=== PATIENT | female | born 1955 | race Hispanic/Latino ===

== ENCOUNTER 2021-02-05 12:44 | Emergency (ER) | payer MEDICARE ==
--- NOTE | 2021-02-05 12:48 | Emergency Department Report ---
Blank Doc - Documentation Documentation: 65-year-old female with past medical history of blood clots present with chest pain, tightness and shortness of breath. 1- This is a initial triage assessment/medical screening only. Full assessment and work-up will be completed once the patient is in proper hospital gown, ED bed and in a private room setting. This initial assessment/diagnostic orders/clinical plan/ treatment(s) is/are subject to change based on pt's health status, clinical progression and re-assessment by fellow clinical providers in the ED. Further treatment and workup at subsequent clinical providers discretion. Patient/guardians urged not to elope from ED as their condition may be serious if not clinically assessed and managed. 2-patient sent to main ED for further relation treatment. 3-cardiac work-up
--- NOTE | 2021-02-05 13:18 | XRay Report ---
CHEST 2 VIEWS INDICATION / CLINICAL INFORMATION: Chest Pain. FINDINGS: SUPPORT DEVICES: None. HEART / MEDIASTINUM: No significant abnormality. LUNGS / PLEURA: No significant pulmonary or pleural abnormality. No pneumothorax. ADDITIONAL FINDINGS: No significant additional findings. IMPRESSION: 1. No acute findings. Signer Name: Eric Felder MD Signed: 02/05/2021 1:13 PM Workstation Name: [id number]
[2021-02-05] MEDS ORDERED: ONDANSETRON 4 MG/2 ML INJ IV ONE (13:48)
[2021-02-05] MEDS ORDERED: fentaNYL 100 MCG/2 ML INJ IV ONE (13:48)
--- NOTE | 2021-02-05 13:52 | Emergency Department Report ---
HPI - General Chief Complaint: Chest Pain Time Seen by Provider: 02/05/21 12:46 - HPI HPI: Room 5 The patient is a 65-year-old female present with a chief complaint of chest pain. The patient states this morning she developed left-sided chest pain desc ribed as a "hurt". Patient states the pain has been constant patient denies shortness of breath, nausea/vomiting or diaphoresis. Patient complains of occasional pleurisy but denies history of fever. The patient states last week she went to the hospital for chest pain and was diagnosed with bilateral pneumonia. Patient states that she was given a prescription for antibiotics (cannot recall the name) and after 3 days her symptoms resolved. Patient states she has been pain-free for approximately 4 days until this morning when the pain came back "worse" than before. Patient currently gives her chest pain a score of 6/10. Patient states her last stress test occurred over 5 years ago but sh e's never had a cardiac catheterization. 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, - Surgical History Past Surgical History?: Yes Additional Surgical History: Right femur, right knee fracture repair - Family History Family history: no significant - Social History Smoking Status: Former Smoker (None x2 months) Substance Use Type: None (Denies illicit drug use) ED Review of Systems ROS: Stated complaint: CHEST PAIN Other details as noted in HPI Constitutional: denies: diaphoresis, fever Eyes: denies: eye pain ENT: denies: throat pain Cardiovascular: chest pain Endocrine: no symptoms reported Gastrointestinal: denies: nausea, vomiting Genitourinary: denies: dysuria Musculoskeletal: denies: back pain Neurological: denies: headache Physical Exam - Physical Exam Vital Signs: Vital Signs 02/05/21 12:59 Temperature 98.1 F Pulse Rate 75 Respiratory 20 Rate Blood Pressure 107/65 [Right] O2 Sat by Pulse 97 Oximetry Physical Exam: GENERAL: The patient is well-developed well-nourished female lying on stretcher not appearing to be in acute distress. [] HEENT: Normocephalic. Atraumatic. Extraocular motions are intact. Patient has moist mucous membranes. NECK: Supple. Trachea midline CHEST/LUNGS: Clear to auscultation. There is no respiratory distress noted. HEART/CARDIOVASCULAR: Regular. There is no tachycardia. There is no gallop rub or murmur. ABDOMEN: Abdomen is soft, nontender. Patient has normal bowel sounds. There is no abdominal distention. SKIN: There is no rash. There is no edema. There is no diaphoresis. NEURO: The patient is awake, alert, and oriented. The patient is cooperative. The patient has no focal neurologic deficits. The patient has normal speech MUSCULOSKELETAL: There is right lower extremity postop boot in place. There is no evidence of acute injury. ED Course Vital Signs 02/05/21 12:59 Temperature 98.1 F Pulse Rate 75 Respiratory 20 Rate Blood Pressure 107/65 [Right] O2 Sat by Pulse 97 Oximetry - Reevaluation(s) Reevaluation #1: 02/05/21 18:01 VQ scan labs discussed with patient. Expressed my recommendation that she be admitted to the hospital for further observation for her chest pain. Patient verbalized understanding but states that she does not wish to be admitted to the hospital. Patient verbalized understanding of increased morbidity and/or mortality should she leave the hospital AGAINST MEDICAL ADVICE. Patient advised to return to the hospital should she change her mind. ED Medical Decision Making - Lab Data Result diagrams: 02/05/21 13:07 02/05/21 13:07 Laboratory Tests 02/05/21 02/05/21 02/05/21 13:07 13:07 13:07 WBC 8.0 RBC 4.90 Hgb 14.7 H Hct 43.8 H MCV 89 MCH 30 MCHC 34 RDW 16.7 H Plt Count 300 Lymph % (Auto) 31.9 Dickenson % (Auto) 8.6 H Eos % (Auto) 4.6 H Baso % (Auto) 0.6 Lymph # (Auto) 2.5 Dickenson # (Auto) 0.7 Eos # (Auto) 0.4 Baso # (Auto) 0.0 Seg Neutrophils % 54.3 Seg Neutrophils # 4.3 PT 23.6 H INR 2.06 H APTT 59.5 H Sodium 141 Potassium 3.9 Chloride 103.8 Carbon Dioxide 31 H Anion Gap 10 BUN 17 Creatinine 0.6 Estimated GFR > 60 BUN/Creatinine Ratio 28 Glucose 85 Calcium 9.5 Magnesium 2.20 Total Bilirubin 0.50 AST 13 ALT 12 Alkaline Phosphatase 145 H Troponin T < 0.010 NT-Pro-B Natriuret Pep 36.58 Total Protein 6.4 Albumin 4.0 Albumin/Globulin Ratio 1.7 Urine Color Urine Turbidity Urine pH Ur Specific [place] Urine Protein Urine Glucose (UA) Urine Ketones Urine Blood Urine Nitrite Urine Bilirubin Urine Urobilinogen Ur Leukocyte Esterase Urine WBC (Auto) Urine RBC (Auto) U Epithel Cells (Auto) Urine Mucus 02/05/21 Unknown WBC RBC Hgb Hct MCV MCH MCHC RDW Plt Count Lymph % (Auto) Dickenson % (Auto) Eos % (Auto) Baso % (Auto) Lymph # (Auto) Dickenson # (Auto) Eos # (Auto) Baso # (Auto) Seg Neutrophils % Seg Neutrophils # PT INR APTT Sodium Potassium Chloride Carbon Dioxide Anion Gap BUN Creatinine Estimated GFR BUN/Creatinine Ratio Glucose Calcium Magnesium Total Bilirubin AST ALT Alkaline Phosphatase Troponin T NT-Pro-B Natriuret Pep Total Protein Albumin Albumin/Globulin Ratio Urine Color Yellow Urine Turbidity Clear Urine pH 7.0 Ur Specific [place] 1.013 Urine Protein <15 mg/dl Urine Glucose (UA) Neg Urine Ketones Neg Urine Blood Sm Urine Nitrite Neg Urine Bilirubin Neg Urine Urobilinogen < 2.0 Ur Leukocyte Esterase Neg Urine WBC (Auto) < 1.0 Urine RBC (Auto) 1.0 U Epithel Cells (Auto) < 1.0 Urine Mucus Few - EKG Data -: EKG Interpreted by Me EKG shows normal: sinus rhythm Rate: normal - EKG Data When compared to previous EKG there are: previous EKG unavailable Interpretation: other (No ischemic changes seen) - Radiology Data Radiology results: report reviewed (Chest x-ray, VQ scan), image reviewed (Chest x-ray, VQ scan) interpreted by me: Chest x-ray-no definite focal infiltrates, no pneumothorax. No foreign body seen [facility] [address] [place] [address] Nu clear Medicine Report Signed Patient: NOHELIA RONDON MR#: [id number] : 1955 Acct:[id number] Age/Sex: 65 / F ADM Date: 02/05/21 Loc: ED Attending Dr: Ordering Physician: PATRICIA COLEMAN MD Date of Service: 02/05/21 Procedure(s): NM perfusion only lung scan Accession Number(s): [id number] cc: PATRICIA COLEMAN MD Nuclear medicine perfusion scan INDICATION: Chest pain TECHNIQUE: A total of 5.5 mCi of technetium 99 MAA injected IV per protocol COMPARISON: Chest radiograph performed 02/05/2021 FINDINGS: No perfusion abnormality identified. IMPRESSION: No perfusion abnormality identified within either lung. Signer Name: Eric Felder MD Signed: 02/05/2021 5:05 PM Workstation Name: [id number] Transcribed By: NITIN Dictated By: Eric Felder MD Electronically Authenticated By: Eric Felder MD Signed Date/Time: 02/05/211704 DD/ 03 TD/TT: Print [facility] [address] [place] [address] XRay Report Signed Patient: NOHELIA RONDON MR#: [id number] : 1955 Acct:[id number] Age/Sex: 65 / F ADM Date: 02/05/21 Loc: ED Attending Dr: Ordering Physician: MAT CAZARES NP Date of Service: 02/05/21 Procedure(s): XR chest routine 2V Accession Number(s): [id number] cc: MAT CAZARES NP Fluoro Time In Minutes: CHEST 2 VIEWS INDICATION / CLINICAL INFORMATION: Chest Pain. FINDINGS: SUPPORT DEVICES: None. HEART / MEDIASTINUM: No significant abnormality. LUNGS / PLEURA: No significant pulmonary or pleural abnormality. No pneumothorax. ADDITIONAL FINDINGS: No significant additional findings. IMPRESSION: 1. No acute findings. Signer Name: Eric Felder MD Signed: 02/05/2021 1:13 PM Workstation Name: [id number] Transcribed By: NITIN Dictated By: Eric Felder MD Electronically Authenticated By: Eric Felder MD Signed Date/Time: 02/05/21 131 DD/ 1313 TD/TT: Print Cancel - Medical Decision Making Patient states she is allergic to IV contrast dye so subsequently VQ scan was ordered - Differential Diagnosis Pneumonia, PE, ACS, pericarditis, GERD, anxiety Critical care attestation.: If time is entered above; I have spent that time in minutes in the direct care of this critically ill patient, excluding procedure time. ED Disposition Clinical Impression: Chest pain Disposition: DC-07 LEFT AGAINST MED ADVICE Is pt being admited?: No Does the pt Need Aspirin: Yes Condition: Undetermined Instructions: Nonspecific Chest Pain, Adult Time of Disposition: 18:01 (Patient leaving AMA) Heart Score - HEART Score History: Moderately suspicious EKG: Normal Age: 45-65 Risk factors: 1-2 risk factors Troponin: < normal limit HEART Score: 3 - EKG Read Time Time EKG Completed: 00:00 (0) EKG Read Time: 00:00
[2021-02-05 13:54] LABS: Basophils % (Auto) 0.6 % (0.0-1.8); Eosinophils # (Auto) 0.4 K/mm3 (0.0-0.4); Eosinophils % (Auto) 4.6 % (0.0-4.3); Hematocrit 43.8 % (30.3-42.9); Hemoglobin 14.7 gm/dl (10.1-14.3); Lymphocytes # (Auto) 2.5 K/mm3 (1.2-5.4); Lymphocytes % (Auto) 31.9 % (13.4-35.0); Mean Corpuscular HGB Conc 34 % (30-34); Mean Corpuscular Volume 89 fl (79-97); Monocytes # (Auto) 0.7 K/mm3 (0.0-0.8); Monocytes % (Auto) 8.6 % (0.0-7.3); Platelet Count 300 K/mm3 (140-440); Red Cell Distribution Width 16.7 % (13.2-15.2)
[2021-02-05 14:03] LABS: Bilirubin,Urine NEG (Negative); Blood,Urine SM (Negative); Color,Urine Yellow (Yellow); Mucus,Urine FEW /HPF; Protein,Urine <15 mg/dL mg/dL (Negative); Urobilinogen,Urine < 2.0 mg/dL (<2.0); WBC,Urine < 1.0 /HPF (0.0-6.0)
[2021-02-05 14:05] LABS: INR 2.06 (0.87-1.13)
[2021-02-05 14:06] LABS: Partial Thromboplastin Time 59.5 Sec. (24.2-36.6)
[2021-02-05 14:21] LABS: Alanine Aminotransferase 12 units/L (7-56); BUN/Creatinine Ratio 28; Blood Urea Nitrogen 17 mg/dL (7-17); Calcium 9.5 mg/dL (8.4-10.2); Hemolysis Index 6
--- NOTE | 2021-02-05 17:09 | Nuclear Medicine Report ---
Nuclear medicine perfusion scan INDICATION: Chest pain TECHNIQUE: A total of 5.5 mCi of technetium 99 MAA injected IV per protocol COMPARISON: Chest radiograph performed 02/05/2021 FINDINGS: No perfusion abnormality identified. IMPRESSION: No perfusion abnormality identified within either lung. Signer Name: Eric Felder MD Signed: 02/05/2021 5:05 PM Workstation Name: [id number]
[2021-02-05] MEDS ORDERED: ASPIRIN 325 MG TAB PO ONE (18:04)
[2021-02-05 18:15] VITALS: BP 134/88
--- NOTE | 2021-02-07 09:14 | Electrocardiograph Report ---
[facility] Test Date: 2021-02-05 Test Time: 12:53:41 Pat Name: NOHELIA RONDON Department: Room: Gender: F [employer]: NURSE : 1955 Requested By: MAT CAZARES Order Number: [id number] Reading MD: Tha Carrasco Measurements Intervals [place] Rate: 75 P: 32 LA: 135 QRS: -39 QRSD: 93 T: 76 QT: QTc: 0 Interpretive Statements Sinus rhythm Nonspecific T abnrm, anterolateral leads No previous ECG available for comparison Electronically Signed On 02-07-2021 9:14:12 EDT by Tha Carrasco
== END 2021-02-05 18:15 | disposition left against medical advice (07) ==
LOC: ED 12:44
DX: R07.9 Chest pain, unspecified (principal); J45.909 Unspecified asthma, uncomplicated; Z88.8 Allergy status to other drugs, medicaments and biological substances; Z91.041 Radiographic dye allergy status; Z98.890 Other specified postprocedural states; Z87.891 Personal history of nicotine dependence
CPT/HCPCS: 36415; 71046; 78580; 80053; 81001; 83735; 83880; 84484; 85025; 85610; 85730; 93005; 96374; 96375; 99284; A9540; J2405; J3010